=== PATIENT | male | born 1950 | race Caucasian/White ===

== ENCOUNTER 2016-04-04 08:15 | Emergency (ER) | payer MEDICARE, OTHER ==
[~2016-04-04] VITALS: Ht 162.6 cm; Wt 57.0 kg
[~2016-04-04 08:15] MED LIST: LORT5TAB PO; Z.0.NO CURRENT MEDS
[2016-04-04 08:21] VITALS: BP 132/77; PULSE 62; RESP 16; TEMP 98.8; O2SAT 98
[2016-04-04] MEDS ORDERED: ACETAMINOPHEN/HYDROcodone 325 MG/5 MG TAB PO ONE (09:00)
--- NOTE | 2016-04-04 10:05 | RADHPO ---
EXAM DATE/TIME: 04/04/2016 09:50 [facility] COMPARISON: No previous studies available for comparison. INDICATIONS : Left wrist pain and swelling MEDICAL HISTORY : None. SURGICAL HISTORY : None. ENCOUNTER: Initial ACUITY: 1 day PAIN SCORE: 10/10 LOCATION: Left upper extremity FINDINGS: Three view examination of the left wrist demonstrates no soft tissue swelling, dislocation, or fractu re. The carpal bones are in normal alignment. The joint spaces are maintained. Bony mineralization is normal. There is cystic change in the distal navicular and mild osteoarthritic changes of the fir st metacarpal multangular articulation. CONCLUSION: No acute bony abnormality. 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 Benign cy stic change of the navicula Hari Rivera MD on April 04, 2016 at 10:02 Board Certified Radiologist. This report was verified electronically.
[2016-04-04] MEDS ORDERED: BACT800T5 PO (10:19)
--- NOTE | 2016-04-04 10:19 | PD ---
HPI Chief Complaint: Edema Time Seen by Provider: 08:32 Travel History International Travel<30 days: No Contact w/Intl Traveler<30days: No Traveled to known affect area: No History of Present Illness HPI Patient is a 65 year old male presents to the ER for evaluation of left wrist pain and swelling for the past 24-36 hours. Patient states works with his hands. Denies injury. Denies history of gout or similiar past symptoms. Patient denies any fever. States symptoms gradually worsening and mild. PFSH Past Medical History Medical History: Denies Significant Hx Hx Anticoagulant Therapy: No Diabetes: No Diminished Hearing: Yes Immunizations Current: Yes Tetanus Vaccination: > 5 Years Social History Alcohol Use: Yes (ONCE PER WEEK) Tobacco Use: Yes (1 PPD) Substance Use: No Allergies-Medications (Allergen,Severity, Reaction): Coded Allergies: No Known Allergies (Verified , 04/04/16) Reported Meds & Prescriptions Reported Meds & Active Scripts Active Bactrim DS (Sulfamethoxazole-Trimethoprim) 800-160 Mg Tab 2 Tab PO BID 7 Days Review of Systems Except as stated in HPI: all other systems reviewed are Neg Physical Exam Narrative GENERAL: WD/WN in nad. SKIN: Warm and dry. HEAD: Normocephalic. EYES: No scleral icterus. No injection or drainage. NECK: Supple, trachea midline. No JVD or lymphadenopathy. CARDIOVASCULAR: Regular rate and rhythm without murmurs, gallops, or rubs. RESPIRATORY: Breath sounds equal bilaterally. No accessory muscle use. GASTROINTESTINAL: Abdomen soft, non-tender, nondistended. MUSCULOSKELETAL: No cyanosis, or edema. There is moderate welling and tenderness about the left radius and distal into the MCP joints. There is some mild overlying erythema which is primarily on the dorsum and does not extend to the volar aspect. There is a small abrasion which is scabbed in this area. Could be nidus for infection. No joint effusion. No abscess. The ROM is somewhat limited by pain but he is able to partially range at the wrist. Distally PMS all intact, ROM intact in fingers. Elbow normal. RUE WNL. BACK: Nontender without obvious deformity. No CVA tenderness. Data Data Last Documented VS Vital Signs Date Time Temp Pulse Resp B/P Pulse Ox O2 Delivery O2 Flow Rate FiO2 04/04/16 08:21 98.8 62 16 132/77 98 Orders Acetamin-Hydrocod 325-5 Mg ([place] 5-325 (04/04/16 09:00) Wrist, Complete ([id number]) (04/04/16 ) [facility] Medical Decision Making Medical Screen Exam Complete: Yes Emergency Medical Condition: Yes Differential Diagnosis Cellulitis, Fracture, Infectious arthritis unlikely, gout, strain, sprain, abscess. Narrative Course Last 24 hours Impressions Wrist X-Ray 04/04/16 0000 Signed Impressions: Service Date/Time: Monday, April 04, 2016 09:50 - CONCLUSION: No acute bony abnormality. 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 Benign cystic change of the navicula Hari Rivera MD Patient apepars well. S/S consistent with superficial cellulitis. Discussed consideration for infectious arthritis but index of suspicion is quite low. Arthrocentesis is contraindicated with erythema and cellulitis overriding. Will therefore start bactrim. Discussed worsening symptoms or no improvement in 2 days should prompt revisit to ED. He is welcome to return to ED at that time for wound check. He is stable for discharge. Diagnosis Primary Impression: Cellulitis of left arm Med/Other Pt SpecificInfo: Prescription(s) given Scripts Sulfamethoxazole-Trimethoprim (Bactrim DS)800-160 Mg Tab2 Tab PO BID 7 Days Ref 0 Prov:Lalito Reyes MD 04/04/16 Disposition: 01 DISCHARGE HOME Condition: Stable Lalito Reyes MD Apr 04, 2016 10:19
== END 2016-04-04 10:41 | disposition home or self-care (01) ==
LOC: PHEFT 08:15
DX: L03.114 Cellulitis of left upper limb (principal); H91.90 Unspecified hearing loss, unspecified ear; F17.200 Nicotine dependence, unspecified, uncomplicated
CPT/HCPCS: 73110; 99283

== ENCOUNTER → 2016-07-21 | Outpatient (CLI) | payer MEDICARE, OTHER ==
[~2016-07-21] MED LIST changes: +BACT800T5 PO; -LORT5TAB PO; -Z.0.NO CURRENT MEDS
[2016-07-21 11:31] LABS: BLOOD, URINE NEG (NEG); COMMENT (UR) CULT NOT INDICATED; CULTURE IF INDICATED CULT NOT INDICATED; GLUCOSE,URINE NEG (NEG); KETONE, URINE NEG (NEG); MUCUS URINE FEW /lpf (OCC); NITRITE,URINE NEG (NEG); URINE COLOR LIGHT-YELLOW (YELLW/STRAW)
[2016-07-21 11:38] LABS: PROTHROMBIN TIME - PATIENT 10.8 SEC (9.8-11.6)
--- NOTE | 2016-07-21 11:40 | RADRPT ---
EXAM DATE/TIME: 07/21/2016 11:06 [facility] COMPARISON: No previous studies available for comparison. INDICATIONS : Evaluate for pneumonia, pneumothorax and communicable diseases. Pre-op Carpal tunnel surgery MEDICAL HISTORY : Smoker SURGICAL HISTORY : Cervical fusion ENCOUNTER: Initial ACUITY: 1 day PAIN SCORE: 0/10 LOCATION: chest FINDINGS: PA and lateral views of the chest demonstrate the lungs to be symmetrically aerated without evidence of mass, infiltrate or effusion. Calcified granuloma right lower lobe. The cardiomediastinal contour s are unremarkable. Osseous structures are intact. CONCLUSION: Normal examination. Right thoracic scoliosis. Hamilton Sosa MD on July 21, 2016 at 11:38 Board Certified Radiologist. This report was verified electronically.
[2016-07-21 12:12] LABS: BICARBONATE 28.4 MEQ/L (21.0-32.0); POTASSIUM 3.4 MEQ/L (3.5-5.1)
--- NOTE | 2016-07-22 22:00 | EKG ---
Date Performed: 07/21/2016 Time Performed: 10:36:35 PTAGE: 66 years EKG: Sinus rhythm POSSIBLE LEFT ATRIAL ENLARGEMENT NONSPECIFIC ST & T-WAVE ABNORMALITY ABNORMAL ECG NO PREVIOUS TRACING DOCTOR: Sanchez Portillo Interpretating Date/Time 07/22/2016 21:59:56
== END ==
LOC: CPRE 10:08
PROVIDERS: ATTEND Orthopaedic Surgery
DX: Z01.810 Encounter for preprocedural cardiovascular examination (principal); Z01.812 Encounter for preprocedural laboratory examination; G56.02 Carpal tunnel syndrome, left upper limb; R94.31 Abnormal electrocardiogram [ECG] [EKG]
CPT/HCPCS: 36415; 71020; 80048; 81001; 85610; 93005